=== PATIENT | male | born 1975 | race Caucasian/White ===

== ENCOUNTER → 2023-07-14 09:20 | Outpatient (REF) | payer BC, SELFPAY ==
[2023-07-14 12:18] LABS: % Basophils 0.5 % (0-2); % Eosinophils 1.2 % (0-6); % Immature Granulocytes 0.3 % (0-0.5); % Lymphocytes 28.5 % (20.5-51.1); % Monocytes 5.5 % (1.7-9.3); Absolute Eosinophils 0.1 10^3/uL (0-0.7); Absolute Lymphocytes 1.7 10^3/uL (1.2-3.4); Absolute Monocytes 0.3 10^3/uL (0.1-0.6); Absolute Neutrophils 3.7 10^3/uL (1.4-6.5); Hematocrit 41.2 % (39.0-52.0); Hemoglobin 14.3 g/dL (13.0-18.0); Mean Corp Hgb Conc. 34.7 g/dL (33.0-37.0); Mean Corpuscular Hgb 29.4 pg (27.0-31.0); Mean Corpuscular Volume 84.8 fL (80.0-94.0); Mean Platelet Volume 10.9 fL (7.4-10.4); Nucleated Red Blood Cells % 0 % (-); Platelet Count 288 10^3/uL (130-400); Red Blood Cell Count 4.86 10^6/uL (4.70-6.10); Red Cell Dist. Width 12.4 % (11.5-14.5); White Blood Cell Count 5.8 10^3/uL (4.8-10.8)
[2023-07-14 12:47] LABS: ALT (SGPT) 27 U/L (0-50); AST (SGOT) 26 U/L (17-59); Alkaline Phosphatase 67 U/L (38-126); Blood Urea Nitrogen 19 mg/dl (9-20); Carbon Dioxide 29 mmol/L (22-30); Chloride 105 mmol/L (98-107); Glucose 89 mg/dl (70-99); HDL Cholesterol 41 mg/dl; LDL Cholesterol, Calculated 107 mg/dl; Potassium 4.6 mmol/L (3.5-5.1); Sodium 137 mmol/L (135-145); Total Bilirubin 0.7 mg/dl (0.2-1.3); Total Cholesterol 160 mg/dl (50-199); Total Protein 6.3 g/dl (6.3-8.2); Triglyceride 62 mg/dl (10-149); Very Low Density Lipoprotein 12 mg/dl (0-30); eGFR > 60.00
[2023-07-14 13:02] LABS: Vitamin D, 25-OH*** 38.3 ng/mL (30-80)
[2023-07-14 13:15] LABS: PSA, Total - Screen 0.96 ng/ml (0.0-4.0); TSH Reflex To Free T4 0.89 uIU/ml (0.47-4.68)
== END ==
LOC: HWLAB 09:20
PROVIDERS: ATTENDING PHYSICIAN Nurse Practitioner Family
DX: M54.50 Low back pain, unspecified (principal); Z00.00 Encounter for general adult medical examination without abnormal findings; E55.9 Vitamin D deficiency, unspecified; Z12.5 Encounter for screening for malignant neoplasm of prostate
CPT/HCPCS: 36415; 72110; 80053; 80061; 82306; 84443; 85025; G0103